=== PATIENT | female | born 1995 | race Two or more races ===

== ENCOUNTER 2024-09-01 10:17 | Emergency (ER) | payer OTHER ==
[~2024-09-01] VITALS: Ht 162.6 cm; Wt 73.9 kg
[2024-09-01 11:42] LABS: HEMATOCRIT 40.4 % (36.0-45.00); HEMOGLOBIN 13.3 g/dL (12.0-15.00); MEAN CELL VOLUME 85.6 fL (80.00-100.00); MEAN CORPUSCULAR HEMOGLOBIN 28.2 pg (27.00-32.0); PLATELET COUNT 227 K/uL (150-450); RED BLOOD COUNT 4.72 M/uL (4.00-6.00)
[2024-09-01 14:32] LABS: PH,URINE 7.5 (5.0-8.0); URINE APPEARANCE Cloudy; URINE BILIRRUBIN Negative (NEGATIVE); URINE BLOOD Negative; URINE COLOR Yellow; URINE GLUCOSE Negative (NEGATIVE); URINE KETONE Negative (NEGATIVE); URINE LEUKOCYTE Negative; URINE NITRATE Negative; URINE PROTEIN Negative (NEGATIVE); URINE UROBILINOGEN 0.2 E.U./dl
[2024-09-01 14:45] LABS: URINE BACTERIA 325.5 uL (0.0-1933); URINE EPITHELIAL CELLS 23.7 uL (0.0-38.8); URINE RBC 6.6 uL (0.0-20.8); URINE WBC 7.7 uL (0.0-23.2)
[2024-09-01] MEDS ORDERED: PEPCID AC20 MG PO (14:49)
[2024-09-01] MEDS ORDERED: ZOFRAN8 MG PO (14:49)
== END 2024-09-01 15:10 | disposition home or self-care (01) ==
LOC: ER 10:20
PROVIDERS: Emergency Medicine
DX: O26.891 Other specified pregnancy related conditions, first trimester (principal); R10.2 Pelvic and perineal pain; Z3A.11 11 weeks gestation of pregnancy; R19.7 Diarrhea, unspecified

== ENCOUNTER 2024-10-15 14:58 | Outpatient (CLI) | payer OTHER ==
[~2024-10-15 14:58] MED LIST: PEPCID AC20 MG PO; ZOFRAN8 MG PO
== END 2024-10-15 15:08 | disposition home or self-care (01) ==
LOC: SONOGRAMA 14:58
PROVIDERS: ATTEND Obstetrics & Gynecology Maternal & Fetal Medicine
DX: N63.10 Unspecified lump in the right breast, unspecified quadrant (principal)

== ENCOUNTER 2025-02-06 10:32 | Outpatient (CLI) | payer OTHER | END 2025-02-06 11:20 | disposition home or self-care (01) | LOC: NST 10:32 | PROVIDERS: ATTEND Obstetrics & Gynecology Maternal & Fetal Medicine | DX: Z34.83 Encounter for supervision of other normal pregnancy, third trimester (principal) ==

== ENCOUNTER 2025-02-13 15:06 | Outpatient (CLI) | payer OTHER ==
[2025-02-13 15:23] VITALS: BP 129/77
== END 2025-02-13 15:57 | disposition home or self-care (01) ==
LOC: NST 15:06
PROVIDERS: ATTEND Obstetrics & Gynecology Maternal & Fetal Medicine
DX: Z34.83 Encounter for supervision of other normal pregnancy, third trimester (principal)

== ENCOUNTER 2025-02-17 10:01 | Outpatient (CLI) | payer OTHER | END 2025-02-17 11:07 | disposition home or self-care (01) | LOC: NST 10:01 | PROVIDERS: ATTEND Obstetrics & Gynecology Gynecology | DX: Z34.83 Encounter for supervision of other normal pregnancy, third trimester (principal) ==

== ENCOUNTER 2025-02-20 14:37 | Outpatient (CLI) | payer OTHER | END 2025-02-20 16:20 | disposition home or self-care (01) | LOC: NST 14:37 | PROVIDERS: ATTEND Obstetrics & Gynecology Gynecology | DX: Z34.83 Encounter for supervision of other normal pregnancy, third trimester (principal) ==

== ENCOUNTER 2025-02-24 10:08 | Outpatient (CLI) | payer OTHER | END 2025-02-24 11:10 | disposition home or self-care (01) | LOC: NST 10:08 | PROVIDERS: ATTEND Obstetrics & Gynecology | DX: Z34.83 Encounter for supervision of other normal pregnancy, third trimester (principal) ==

== ENCOUNTER 2025-02-28 14:42 | Inpatient (IN) | payer OTHER ==
[~2025-02-28] VITALS: Ht 162.6 cm; Wt 86.6 kg
[2025-02-28 14:53] VITALS: BP 120/68
[2025-02-28] MEDS ORDERED: RINGERS SOLUTION,LACTATED 1,000 ML IV SCH (15:15)
[2025-02-28] MEDS ORDERED: MISOPROSTOL 25 MCG TABLET VAG ONE (15:15)
[2025-02-28] MEDS ORDERED: MORPHINE SULFATE 4 MG/ML CARTRIDGE IV PRN (15:15)
[2025-02-28 15:20] VITALS: BP 128/84
[2025-02-28] MEDS ORDERED: PRENATA CHEWAB1 EACH PO (15:27)
[2025-02-28 16:08] LABS: BASO % 0.2 % (0.1-1.2); EOS # 0.03 (0.04-0.54); EOS % 0.3 % (0.7-7.0); LYMPH # 1.76 (1.18-3.74); LYMPH % 14.8 % (19.3-53.1); MEAN PLATELET VOLUME 12.40 fl (9.4-12.4); MONO # 0.80 (0.24-0.82); MONO % 6.7 % (4.7-12.5); NEUT # 9.18 (1.56-6.13); NEUT % 76.9 % (34.0-71.1); RED CELL DISTRIBUTION WIDTH 13.8 % (11.6-14.4)
[2025-02-28 16:30] LABS: INR < 0.93
[2025-02-28 16:34] LABS: ALT/SGPT 19.0 U/L (12-78); AST/SGOT 19.0 U/L (15-37); BILIRUBIN TOTAL 0.42 mg/dL (0.3-1.2); BUN CREA RATIO 11.0 (7.0-25.0); CREATININE SERUM 0.74 mg/dL (0.55-1.02); GFR 93.45; GLOBULINA 3.5 G/DL (2.4-3.5); GLUCOSE FASTING 90.0 mg/dL (65-100); OSMOLALITY SERUM 279.0 MOSM/KG (275-295)
[2025-02-28 20:12] VITALS: BP 115/66; BP 125/82
[2025-02-28] MEDS ORDERED: FAMOTIDINE/PF 20 MG in 0.9 % SODIUM CHLORIDE 8 ML IV PUSH SCH (21:00)
[2025-02-28 23:28] VITALS: BP 121/75
[2025-03-01 04:35] VITALS: BP 127/81; O2SAT 100
[2025-03-01 07:25] VITALS: BP 126/81
[2025-03-01] MEDS ORDERED: RINGERS SOLUTION,LACTATED 1,000 ML IV SCH (09:45)
[2025-03-01] MEDS ORDERED: MORPHINE SULFATE 4 MG/ML CARTRIDGE IV PRN (09:45)
[2025-03-01] MEDS ORDERED: CEFAZOLIN SODIUM 1,000 MG VIAL IV ONE (09:45)
[2025-03-01] MEDS ORDERED: CITRIC ACID/SODIUM CITRATE 30 ML BLIST.PACK PO NR (09:45)
[2025-03-01] MEDS ORDERED: OXYTOCIN 1,000 ML IV SCH (09:45)
[2025-03-01] MEDS ORDERED: MORPHINE SULFATE 4 MG/ML VIAL IV ONE (11:45)
[2025-03-01] MEDS ORDERED: ONDANSETRON HCL 2 MG/ML VIAL IV SCH (12:00)
[2025-03-01] MEDS ORDERED: KETOROLAC TROMETHAMINE 30 MG VIAL IV SCH (12:00)
[2025-03-01] MEDS ORDERED: ACETAMINOPHEN 500 MG GEL..CAP PO SCH (12:00)
[2025-03-01 12:52] VITALS: BP 123/78
[2025-03-01] MEDS ORDERED: OXYTOCIN 10 UNITS/ML VIAL IV ONE (14:15)
[2025-03-01] MEDS ORDERED: ERYTHROMYCIN BASE OPHT 1GM EACH TUBE OP ONE (14:15)
[2025-03-01 14:48] VITALS: BP 138/82
[2025-03-01] MEDS ORDERED: GABAPENTIN 300 MG CAPSULE PO SCH (17:00)
[2025-03-01] MEDS ORDERED: SIMETHICONE 125 MG CAPSULE PO SCH (17:00)
[2025-03-01 18:15] LABS: BASO % 0.3 % (0.1-1.2); EOS # 0.03 (0.04-0.54); EOS % 0.2 % (0.7-7.0); LYMPH # 1.84 (1.18-3.74); LYMPH % 13.4 % (19.3-53.1); MEAN PLATELET VOLUME 11.80 fl (9.4-12.4); MONO # 0.87 (0.24-0.82); MONO % 6.3 % (4.7-12.5); NEUT # 10.86 (1.56-6.13); NEUT % 79.1 % (34.0-71.1); RED CELL DISTRIBUTION WIDTH 13.8 % (11.6-14.4)
[2025-03-02] VITALS: BP 131/86
[2025-03-02] MEDS ORDERED: KETOROLAC TROMETHAMINE 10 MG TABLET PO SCH (08:00)
[2025-03-02] MEDS ORDERED: OxyCODONE HCL 5 MG TABLET (ROXICODONE) PO PRN (08:00)
[2025-03-02 08:48] VITALS: BP 125/81
[2025-03-02] MEDS ORDERED: DOCUSATE SODIUM 100MG CAP PO SCH (09:00)
[2025-03-02 15:48] VITALS: BP 127/86
[2025-03-03] VITALS: BP 132/87
[2025-03-03 08:11] VITALS: BP 134/84
== END 2025-03-03 11:25 | disposition home or self-care (01) | DRG 788 ==
LOC: LDR 14:42 → OB/GYN 14:42
PROVIDERS: Obstetrics & Gynecology; ADMIT Obstetrics & Gynecology; ATTEND Obstetrics & Gynecology
PROC: 4A1HXCZ Monitoring of Products of Conception, Cardiac Rate, External Approach (ICD-10-PCS; 2025-02-28)
PROC: 3E0P7VZ Introduction of Hormone into Female Reproductive, Via Natural or Artificial Opening (ICD-10-PCS; 2025-02-28)
PROC: 3E033VJ Introduction of Other Hormone into Peripheral Vein, Percutaneous Approach (ICD-10-PCS; 2025-03-01)
PROC: 10D00Z1 Extraction of Products of Conception, Low, Open Approach (ICD-10-PCS; principal; 2025-03-01 12:00)
DX: O61.0 Failed medical induction of labor (principal); O36.8130 Decreased fetal movements, third trimester, not applicable or unspecified; O36.5930 Maternal care for other known or suspected poor fetal growth, third trimester, not applicable or unspecified; Z3A.37 37 weeks gestation of pregnancy; Z37.0 Single live birth